=== PATIENT | female | born 1980 | race Caucasian/White ===

== ENCOUNTER 2019-10-09 10:41 | Outpatient (CLI) | payer BC, OTHER, SELFPAY ==
--- NOTE | ~2019-10-09 | MR_ITS ---
EXAMINATION: MR ankle RT wo con DATE: 10/09/2019 11:43 INDICATION: Right heel pain. Plantar fasciitis. TECHNIQUE: Magnetic resonance imaging (MRI) of the right ankle was performed without intravenous cont rast. Sequences included sagittal, coronal, and axial proton-density weighted fast spin echo without and with fat saturation. COMPARISON: None. FINDINGS: Medial ankle ligaments: Deep and superficial deltoid ligaments as well as the spring ligament are normal. Lateral ankle ligaments: The anterior and posterior inferior tibiofibular ligaments are normal. The anterior talofibular, calc aneofibular and posterior talofibular ligaments are normal. Tendons: Achilles tendon is normal. The peroneus longus and brevis tendons are normal. The tibialis anterior a nd extensor hallucis longus and extensor digitorum longus tendons are normal. The tibialis posterior, flexor digitorum longus and flexor hallucis longus tendons are normal. Plantar fascia: Small thin plantar calcaneal spur. Moderate thickening and mild increased signal of the proximal plan tar aponeurosis. There is mild surrounding soft tissue edema as well as mild marrow edema deep to the calcaneal insertion. Findings are consistent with moderate acute on chronic plantar fasciitis. Bones/other: Bone alignment is normal. Aside from the mild marrow edema at the posterior tuberosity of the calcane us there is normal marrow signal. No fracture or pathologic marrow replacing process. Lisfranc ligame nt complex is normal. Sinus Tarsi and tarsal tunnel are unremarkable. Fluid: Moderate acute on chronic plantar fasciitis. IMPRESSION: 1. Reviewed, dictated and finalized at location A. IMPRESSION: 1.
== END 2019-10-09 10:42 | disposition home or self-care (01) ==
PROVIDERS: Visit Provider Podiatrist Foot & Ankle Surgery
DX: M79.671 Pain in right foot (principal); M72.2 Plantar fascial fibromatosis
CPT/HCPCS: 73721

== ENCOUNTER 2019-12-04 00:41 | Outpatient (CLI) | payer BC, OTHER, SELFPAY ==
[2019-12-04 18:19] LABS: SARS-CoV-2 RNA PCR Negative
== END 2019-12-04 00:42 | disposition home or self-care (01) ==
LOC: ANHCOVIDDT 00:41
PROVIDERS: Visit Provider Podiatrist Foot & Ankle Surgery
DX: Z01.812 Encounter for preprocedural laboratory examination (principal); Z20.828 Contact with and (suspected) exposure to other viral communicable diseases
CPT/HCPCS: 87635; C9803; U0003

== ENCOUNTER 2019-12-06 01:54 | Day surgery (SDC) | payer BC, OTHER, SELFPAY ==
[2019-11-26 10:07] VITALS: BMI 27.9
--- NOTE | 2019-12-05 11:31 | P.PNAN_ITS ---
Anes - Initial Pre Proc Eval Procedure: Operation Date: 12/06/19 09:00 Proposed Procedures p Partial Plantar Fasciectomy Right Foot - Alex Sabillon JR, MD Date/Time: 12/05/19 11:31 Surgeon: Alex Sabillon JR, MD Pre Op Diagnosis: chronic plantar fascitis right foot Patient Data Age: 39 Gender: F Height: 1.63 m Weight: 73.94 kg Allergies Allergy/AdvReac Type Severity Reaction Status Date / Time ibuprofen Allergy Hives Verified 11/26/19 10:08 Home Medications Medication Instructions Recorded Confirmed Type multivitamin 1 tablet PO DAILY 11/26/19 11/26/19 History oxcarbazepine 600 mg PO QPM 11/26/19 11/26/19 History Patient hx anesthesia problems: none Family hx anesthesia problems: none [facility] Past Medical History Medical History (Updated 12/05/19 @ 11:31 by Orlando Camilo DO) Anxiety Fibromyalgia Surgical History Surgical History (Updated 12/05/19 @ 11:31 by Orlando Camilo DO) History of tubal ligation Social History Social History Smoking status: Never smoker Alcohol intake: current Drinks per week: 1 Spiritual care concerns: No Anes - Eval Final PreProcedure Day of Procedure 12/05/19 11:31 Patient weight: overweight Heart: regular rate and rhythm Lungs: clear to auscultation and normal air movement Airway: Mallampati scale class II Neurological: alert and oriented Last oral intake: >/= 8 hours ASA classification: II Emergent: no Anesthetic plan: proceed Anesthesia type and monitoring: general GIVS and standard monitoring Informed Consent: The patient's anesthetic plan and its attendant risks and benefits were discussed with the patient/family/POA. Questions were solicited and answers provided to the satisfaction of the patient/family/POA.
--- NOTE | 2019-12-06 07:08 | WPDHPUPDATE1 ---
History and Physical Update Update Date/Time: 12/06/19 07:08 History and Physical has been reviewed, including an updated exam of the patient. There are NO changes in the patient's condition. Risks, benefits, and alternatives have been discussed and questions answered. Patient agrees to proceed with procedure.
[2019-12-06 07:12] VITALS: BP 129/73; PULSE 81; RESP 16; TEMP 36.7; O2SAT 100
[2019-12-06] MEDS: LACTATED RINGERS 1,000 ML 30 ML IV CONT (07:30)
[2019-12-06] MEDS: ceFAZolin 2 GM/D5W 50 ML 2 GM/50 ML BAG IVPB (08:54)
[2019-12-06] MEDS: LIDOCAINE HCL 2% LOCAL INJ 20 ML VIAL 10 ML INFILTRATE (09:20)
--- NOTE | 2019-12-06 09:38 | PM.OP ---
Procedure Note - Brief Procedure Note - Brief Date of procedure: 12/06/19 Pre-op diagnosis: chronic plantar fascitis right foot Post-op diagnosis: same Procedure performed: Partial plantar fasciectomy right foot Anesthesia: MAC and local Surgeon: Alex Sabillon JR, DPM Estimated blood loss (mL): 2 Complications: No immediate complications Condition: stable Disposition: same day
[2019-12-06 09:45] VITALS: BP 105/45; PULSE 97; RESP 14; TEMP 36.4; O2SAT 97
[2019-12-06 10:15] VITALS: BP 110/55; PULSE 93; RESP 14
[2019-12-06 10:45] VITALS: BP 108/56; PULSE 88; RESP 14
--- NOTE | 2019-12-09 06:31 | OP_ITS ---
DATE OF PROCEDURE: 12/06/2019 PREOPERATIVE DIAGNOSIS: Chronic plantar fasciitis, right foot. POSTOPERATIVE DIAGNOSIS: Chronic plantar fasciitis, right foot. PROCEDURE: Partial plantar fasciectomy of the right foot. PATHOLOGY: None. ANESTHESIA: MAC with local. HEMOSTASIS: Pneumatic ankle tourniquet at 250 mmHg. ESTIMATED BLOOD LOSS: Minimal. MATERIALS USED: 3-0 Vicryl, 2-0 Prolene and 3-0 Prolene. INJECTABLES: 20 cc of Exparel injected preoperatively, 10 cc of 2% lidocaine plain injected preoperatively as well. COMPLICATIONS: None. PROCEDURE IN DETAIL: Under mild sedation, the patient was brought into the operating room, placed on the operating table in the supine position. Pneumatic ankle tourniquet was placed about the patient's right ankle. Following IV sedation, local anesthesia was obtained about the right ankle utilizing 20 cc of Exparel and 10 cc of 2% lidocaine plain. The foot was then scrubbed, prepped, and draped in the usual aseptic manner. An Esmarch bandage was then used to examine the patient's right foot and pneumatic ankle tourniquet was then inflated. Surgery began in the following manner. Attention was directed to the plantar aspect of the right heel, where an incision was made approximately 3 cm distal to the inferior-most component of the calcaneus. The incision was longitudinal and measured approximately 2 cm in length. Incision was continued deep down through subcutaneous tissues using sharp and blunt dissection. All bleeders were ligated and cauterized as necessary. At this point, the medial band of the plantar fascia and central band of the plantar fascia was visualized and transected using a 15 blade. At this point, 3 mm of the plantar fascia was also resected and passed from the operative field in order to allow lengthening of the plantar fascia once healed. The wound site was flushed with copious amounts of sterile saline. The windlass effect was elicited and there was significantly less strain present to the plantar fascia, the lateral band of the plantar fascia was left intact. Next, the subcutaneous structures were reapproximated with 3-0 Vicryl. Next, the skin was reapproximated and coapted utilizing 2-0 Prolene and 3-0 Prolene in horizontal mattress as well as simple interrupted suture technique. Upon completion of procedure, the incision was dressed with Adaptic, 4x4s, Kerlix, and Coban. The pneumatic ankle tourniquet was then deflated and a prompt hyperemic response noted to all digits of the right foot. A posterior splint was then applied. The patient did very well with the procedure and anesthesia. She was transferred to the recovery room with vital signs stable and vascular status intact to all toes of the right foot. Following period of postoperative monitoring, the patient was discharged home on the following instructions. 1. Keep the dressing clean, dry, and intact. Use a cast protector bag with showers. 2. The patient to be strictly nonweightbearing for 3 weeks. 3. The patient should ice and elevate the right foot when at rest. 4. Contact Dr. Sabillon for all postop care and if any problems arise, prescriptions for Xarelto 10 mg to be taken 1 p.o. q.24 hours for 14 days to prevent DVT. 5. Prescriptions were written for Percocet 5/325 dispensed 40 to be taken 1 p.o. q.4-6 hours as needed for severe pain. Rita I MT: Mary
== END 2019-12-06 11:00 | disposition home or self-care (01) ==
PROVIDERS: Visit Provider Podiatrist Foot & Ankle Surgery
PROC: (CPT 28119; principal; 2019-12-06 09:00)
DX: M72.2 Plantar fascial fibromatosis (principal)
CPT/HCPCS: 28060; A9270; C9290; J0690; J2250; J2704; J3010; J7120

== ENCOUNTER → 2020-08-26 16:09 | Outpatient (CLI) | payer BC, OTHER, SELFPAY ==
--- NOTE | ~2020-08-26 | MM_ITS ---
EXAMINATION: MM screening [place] BI w [facility] HISTORY: Screening TECHNIQUE: Craniocaudal and mediolateral oblique 3-D tomosynthesis images were obtained and synthetic 2-D images were generated. CAD analysis was submitted and interpreted. COMPARISON: No prior mammogram is available for comparison at this institution. BREAST PARENCHYMAL COMPOSITION: The breasts are heterogenously dense, which may obscure small masses. FINDINGS: There is focal asymmetry posteriorly and centrally in the right breast on CC view. There is focal asymmetry in the central aspect of the left breast posteriorly. No discrete mass or architectu ral distortion. No suspicious calcifications. IMPRESSION: 1. Bilateral breast asymmetries. 2. Additional mammographic views and possible breast ultrasound are recommended. BI-RADS Category 0: Incomplete: Needs additional imaging evaluation. Reviewed, dictated and finalized at location A. IMPRESSION: 1. Bilateral breast asymmetries. 2. Additional mammographic views and possible breast ultrasound are recommended . BI-RADS Category 0: Incomplete: Needs additional imaging evaluation.
== END ==
DX: Z12.31 Encounter for screening mammogram for malignant neoplasm of breast (principal); R92.8 Other abnormal and inconclusive findings on diagnostic imaging of breast
CPT/HCPCS: 77063; 77067

== ENCOUNTER → 2020-12-11 09:16 | Outpatient (CLI) | payer BC, OTHER, SELFPAY ==
--- NOTE | ~2020-12-11 | MMUS_ITS ---
EXAMINATION: MM diagnostic hortensia BI w [place], US breast BI complete HISTORY: Follow-up breast asymmetries. TECHNIQUE: Additional 3-D tomosynthesis images of the breasts were performed and synthetic 2-D images were generated. CAD analysis was submitted and interpreted. High resolution complete bilateral breas t ultrasound was performed. COMPARISON: 08/26/2020 BREAST PARENCHYMAL COMPOSITION: The breasts are heterogenously dense, which may obscure small masses. FINDINGS: MAMMOGRAPHIC FINDINGS: Bilateral breast asymmetries compress with spot views. No discrete suspicious masses, calcifications or architectural distortion are identified in either breast. ULTRASOUND: Bilateral breast ultrasound: There are small cysts of both breasts, largest in the right breast at 8: 00 near the areola measuring 6 mm. No suspicious masses in either breast to suggest malignancy. IMPRESSION: 1. No evidence for malignancy in either breast. 2. Routine yearly screening mammogram and regular clinical breast examination are recommended. BI-RADS Category 2: Benign finding(s). Reviewed, dictated and finalized at location A. IMPRESSION: 1. No evidence for malignancy in either breast. 2. Routine yearly screening mammogram and regular clinical breast examination a re recommended. BI-RADS Category 2: Benign finding(s).
== END ==
DX: R92.8 Other abnormal and inconclusive findings on diagnostic imaging of breast (principal)
CPT/HCPCS: 76641; 77062; 77066; G0279